=== PATIENT | female | born 1990 | race African-American/Black ===

== ENCOUNTER 2021-03-10 13:44 | Inpatient (IN) | payer OTHER ==
[2021-03-10 15:26] VITALS: BMI 37.4
[2021-03-10] MEDS ORDERED: ONDANSETRON *ODT* 4 MG TABLET SL ONE (16:05)
[2021-03-10] MEDS ORDERED: ONDANSETRON *ODT* 4 MG TABLET ONE (16:08)
[2021-03-10] MEDS ORDERED: NICOTINE 21 MG/24 HOURS TOPICAL PATCH TD PRN (16:21)
[2021-03-10] MEDS ORDERED: MAGNESIUM CITRATE 300 ML BOTTLE PO PRN (16:21)
[2021-03-10] MEDS ORDERED: MAG HYDROX/AL HYDROX/SIMETH 30 ML UNIT-DOSE CUP PO PRN (16:21)
[2021-03-10] MEDS ORDERED: MENTHOL/PHENOL 1 EACH UD MM PRN (16:21)
[2021-03-10] MEDS ORDERED: BISMUTH SUBSALICYLATE 524 MG/30 ML PO PRN (16:21)
[2021-03-10] MEDS ORDERED: diazePAM 5 MG TABLET PO PRN (16:21)
[2021-03-10] MEDS ORDERED: ONDANSETRON *ODT* 4 MG TABLET SL PRN (16:21)
[2021-03-10] MEDS ORDERED: ACETAMINOPHEN 325 MG TABLET (FP) PO PRN ×2 (16:21)
[2021-03-10] MEDS ORDERED: MAGNESIUM HYDROX 2400MG/30ML ORAL SUSPENSION 30 ML CUP PO PRN (16:21)
[2021-03-10] MEDS: METHOCARBAMOL 500 MG TABLET PO PRN (17:48)
[2021-03-10] MEDS: hydrOXYzine PAMOATE 25 MG CAPSULE (FP) PO SCH ×2 (17:48→22:10)
[2021-03-10] MEDS: MELATONIN 5 MG TABLETS PO SCH (22:10)
[2021-03-10] MEDS: THIAMINE HCL 100 MG TABLET (FP) PO SCH (22:10)
[2021-03-10] MEDS: diazePAM 5 MG TABLET PO SCH (22:12)
[2021-03-11] MEDS: diazePAM 5 MG TABLET PO SCH ×4 (06:50→22:15)
[2021-03-11] MEDS: hydrOXYzine PAMOATE 25 MG CAPSULE (FP) PO SCH ×5 (06:52→22:15)
[2021-03-11] MEDS: TOPIRAMATE 25 MG TABLET PO SCH (11:41)
[2021-03-11 11:44] LABS: HEMATOCRIT 31.2 % (32.4-45.2); HEMOGLOBIN 9.5 GM/dL (10.7-15.3); MCHC 30.5 g/dl (32.0-36.0); MEAN CELL VOLUME 68.7 fl (80-96); MEAN PLT VOLUME 8.4 fl (7.5-11.1); PLATELET COUNT 383 10^3/uL (134-434); RBC 4.54 M/mm3 (3.60-5.2); RDW 25.5 % (11.6-15.6); WHITE BLOOD COUNT 5.8 K/mm3 (4.0-10.0)
[2021-03-11 12:00] LABS: ALBUMIN 3.2 g/dl (3.4-5.0); BLOOD UREA NITROGEN 6.3 mg/dL (7-18)
[2021-03-11 12:02] LABS: TOT PROT 7.4 g/dl (6.4-8.2)
[2021-03-11 12:03] LABS: CALCIUM 8.9 mg/dL (8.5-10.1); CREATININE 0.8 mg/dL (0.55-1.3)
[2021-03-11] MEDS: NICOTINE 10 MG CARTRIDGE (INHALER) IH PRN (16:02)
[2021-03-11] MEDS: METHOCARBAMOL 500 MG TABLET PO PRN (22:14)
[2021-03-11] MEDS: IBUPROFEN 400 MG TABLET (FP) PO PRN (22:14)
[2021-03-11] MEDS: MELATONIN 5 MG TABLETS PO SCH (22:15)
[2021-03-11] MEDS: THIAMINE HCL 100 MG TABLET (FP) PO SCH (22:15)
[2021-03-12] MEDS: hydrOXYzine PAMOATE 25 MG CAPSULE (FP) PO SCH ×5 (06:59→22:12)
[2021-03-12] MEDS: METHOCARBAMOL 500 MG TABLET PO PRN ×2 (06:59→22:12)
[2021-03-12] MEDS: diazePAM 5 MG TABLET PO SCH ×3 (07:00→22:13)
[2021-03-12] MEDS: TOPIRAMATE 25 MG TABLET PO SCH (10:21)
[2021-03-12] MEDS: NICOTINE 10 MG CARTRIDGE (INHALER) IH PRN (14:42)
[2021-03-12] MEDS: MELATONIN 5 MG TABLETS PO SCH (22:12)
[2021-03-12] MEDS: THIAMINE HCL 100 MG TABLET (FP) PO SCH (22:12)
[2021-03-12] MEDS: IBUPROFEN 400 MG TABLET (FP) PO PRN (22:15)
[2021-03-13] MEDS ORDERED: diazePAM 5 MG TABLET PO SCH (06:00)
[2021-03-13] MEDS: hydrOXYzine PAMOATE 25 MG CAPSULE (FP) PO SCH ×2 (06:33→09:53)
[2021-03-13 09:36] VITALS: BP 115/74; PULSE 74; TEMP 97.1
[2021-03-13] MEDS: TOPIRAMATE 25 MG TABLET PO SCH (09:53)
[2021-03-14] MEDS ORDERED: diazePAM 5 MG TABLET PO ONE (06:00)
== END 2021-03-13 10:18 | disposition home or self-care (01) | DRG 775 ==
LOC: EDSEX → YASAS 13:44 → Y3N 16:38
PROVIDERS: ADMIT Allergy & Immunology; ATTEND Allergy & Immunology
PROC: HZ2ZZZZ Detoxification Services for Substance Abuse Treatment (ICD-10-PCS; principal; 2021-03-10)
DX: F10.230 Alcohol dependence with withdrawal, uncomplicated (principal); F12.10 Cannabis abuse, uncomplicated; F17.210 Nicotine dependence, cigarettes, uncomplicated; D64.9 Anemia, unspecified; Z59.0 Homelessness
CPT/HCPCS: 36415; 80053; 81025; 82607; 82728; 82746; 83540; 83550; 85027; 86780; C9803; Q0162; U0003; U0005